=== PATIENT | female | born 1995 | race Caucasian/White ===

== ENCOUNTER 2017-07-15 11:46 | Emergency (ER) | payer OTHER ==
[2017-07-15] MEDS ORDERED: ACETAMINOPHEN 500 MG TAB PO ONE (12:13)
[2017-07-15] MEDS ORDERED: IBUPROFEN 200 MG TAB PO ONE (12:13)
--- NOTE | 2017-07-15 12:27 | EDPHY ---
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 Patient was standing with her back to the door when the lift compressed her abdomen, causing compression of her abdomen and her back. She was entrapped there for about 45 sec. She is complaining of pain in her left lateral back. No numbness. Does have some mild abdominal pain. No bruising. No prior injuries. Last menstrual. Was months ago, she has a Mirena IUD. No fevers or chills. No nausea or vomiting. No other injuries. ROS: 10 point Review of Systems is negative except as noted in the HPI. PMH: Denies Social History: No smoking, no alcohol, no recreational drug use Family History: non-contributory Physical Exam: Gen: Awake, Alert, Airway Intact HEENT: Head: Atraumatic Eyes: PERRLA, EOMI Nose: No epistaxis Mouth: Normal dentition, Airway patent Face: No deformity Neck: non-tender, no stepoff, Full ROM without pain Chest: non-tender, lungs CTA Heart: normal heart tones Abd: soft, very mild diffuse tenderness in the lower abdomen. No significant liver spleen tenderness. Mild lower abdominal tenderness bilaterally. No guarding. No ecchymoses. Pelvis: non-tender, stable to AP and Lateral compression Back: Patient has left greater than right paraspinal tenderness. Moderate midline tenderness. No deformities. No ecchymosis. No abrasions., no midline tenderness Ext: atramatic, full ROM Skin: no rash Neuro: CN II-XII intact, Strength 5/5 in all extremities, sensation intact in all extremities - Personal History LMP (Females 10-55): Extended Cycle BCP/Inj Current Tetanus Diphtheria and Acellular Pertussis (TDAP): Unsure - Medical/Surgical History Hx Asthma: No Hx Chronic Respiratory Disease: No Hx Diabetes: No Hx Cardiac Disease: No Hx Renal Disease: No Hx Cirrhosis: No Hx Alcoholism: No Hx HIV/AIDS: No Hx Splenectomy or Spleen Trauma: No Other PMH: Med hx-ectopic . Surg-fallopian tube,appy - Social History Smoking Status: Current some day smoker Constitutional: Initial Vital Signs Temperature (C) 36.9 C 07/15/17 11:55 Heart Rate 87 07/15/17 11:55 Respiratory Rate 16 07/15/17 11:55 Blood Pressure 117/73 07/15/17 11:55 O2 Sat (%) 97 07/15/17 11:55 O2 Delivery Mode Room Air Allergies/Adverse Reactions: No Known Allergies Allergy (Verified 07/15/17 11:54) Home Medications: Medication Instructions Recorded ARYAN 07/15/17 Medical Decision Making - Diagnostics Imaging Results: Imaging Impressions Lumbar Spine X-Ray 07/15/17 12:27 Impression: 1. No acute fracture. 2. Trace L5/S1 anterolisthesis. Consider MRI if clinically warranted. ED Course/Re-evaluation: Urinalysis is negative for blood. She has a soft abdomen. No solid organ tenderness. No contusions or ecchymosis. No central back pain. No numbness or weakness. She is improved with ibuprofen acetaminophen. [facility], return for any concerns. - Data Points Medications Given: Discontinued Medications Acetaminophen (Tylenol) 1,000 mg PO EDNOW ONE Stop: 07/15/17 12:14 Last Admin: 07/15/17 12:19 Dose: 1,000 mg Ibuprofen (Motrin) 200 mg PO EDNOW ONE Stop: 07/15/17 12:14 Last Admin: 07/15/17 12:18 Dose: 200 mg Point of Care Test Results: Urine Dip Collection Date 07/15/17 Collection Time 13:09 Specific [place] (1.002-1.030) 1.025 PH (5.0-7.5) 7.0 Leukocytes (Negative) Negative Nitrites (Negative) Negative Protein (Negative) Negative Glucose (Negative) Negative Ketones (Negative) Negative Urobilnogen (0.2-1.0 EU) 0.2 Bilirubin (Negative) Negative Blood (Negative) Negative Departure - Departure Disposition: Home, Routine, Self-Care Clinical Impression: Back pain, Contusion Condition: Good Instructions: Back Pain (ED), Contusion in Adults (ED) Additional Instructions: You may alternate acetaminophen with ibuprofen as needed for aches and pains. Apply ice for 15 min of every hour while awake. [facility] in 3-4 days. Return to the emergency department for increasing pain, fevers, chills, nausea, vomiting, shortness of breath, or any other concerns. Referrals: Work Comp Referral [facility] [Outside] - As per Instructions
[2017-07-15 13:33] VITALS: BP 106/76
== END 2017-07-15 13:31 | disposition home or self-care (01) ==
LOC: CED 11:46
DX: S30.0XXA Contusion of lower back and pelvis, initial encounter (principal); W23.1XXA Caught, crushed, jammed, or pinched between stationary objects, initial encounter; Y99.0 Civilian activity done for income or pay
CPT/HCPCS: 72100-PO